=== PATIENT | female | born 1960 | race Caucasian/White ===

== ENCOUNTER → 2022-03-10 | Outpatient (CLI) | payer BC ==
[~2022-03-10] MED LIST: CIPRO500 MG/5 M PO; NORCO 5-325 TA1 EACH PO; PERCOCET 5/325 T1 EA PO; VIBRAMYCIN100 MG PO; ZOFRAN ODT4 MG PO; ZOFRAN4 MG PO
== END ==
LOC: KOH-I 09:59
DX: N20.0 Calculus of kidney (principal)
CPT/HCPCS: 74018